=== PATIENT | female | born 2000 | race Hispanic/Latino ===

== ENCOUNTER 2021-05-07 23:00 | Emergency (ER) | payer MEDICAID ==
[~2021-05-07] VITALS: Ht 154.9 cm; Wt 61.2 kg
[2021-05-08] MEDS ORDERED: KETOROLAC 60 MG VIAL (30MG/ML) IM ONE (00:30)
[2021-05-08] MEDS ORDERED: ORPHENADRINE CITRATE 30 MG/ML ML IM ONE (00:30)
[2021-05-08 00:44] VITALS: BP 124/76
[2021-05-08] MEDS ORDERED: CYCL-309 PO (00:58)
[2021-05-08] MEDS ORDERED: MELO7.5T12 PO (00:58)
[2021-05-08] MEDS ORDERED: LIDOP TP (00:58)
[2021-05-08] MEDS ORDERED: CRUT1EAC MC (01:08)
== END 2021-05-08 01:13 | disposition home or self-care (01) ==
LOC: EDH 23:00
DX: M70.41 Prepatellar bursitis, right knee (principal); M54.50 Low back pain, unspecified; M62.838 Other muscle spasm; Z79.1 Long term (current) use of non-steroidal anti-inflammatories (NSAID); Y93.89 Activity, other specified
CPT/HCPCS: 96372 ×2; 99284; J1885; J2360

== ENCOUNTER 2021-05-21 06:10 | Emergency (ER) | payer MEDICAID ==
[~2021-05-21] VITALS: Ht 157.5 cm; Wt 66.7 kg
[~2021-05-21 06:10] MED LIST: CRUT1EAC MC; CYCL-309 PO; LIDOP TP; MELO7.5T12 PO
[2021-05-21] MEDS ORDERED: KETOROLAC 15MG/ML VIAL (15MG/ML) ONE (06:37)
[2021-05-21] MEDS ORDERED: HYDROCODONE/ACETAMINOPHEN 5/325 MG TAB ONE (06:37)
[2021-05-21] MEDS ORDERED: KETOROLAC 15MG/ML VIAL (15MG/ML) IM SCH (07:00)
[2021-05-21] MEDS ORDERED: HYDROCODONE/ACETAMINOPHEN 5/325 MG TAB PO SCH (07:00)
[2021-05-21 07:28] LABS: BASOPHILS % (AUTO) 0.7 % (0.0-5.0); EOSINOPHILS % (AUTO) 3.7 % (0.0-8.0); HEMATOCRIT 40.9 % (36-48); LYMPHOCYTES % (AUTO) 29.4 % (21.0-51.0); MEAN CORPUSCULAR HGB CONC 31.3 g/dL (32.0-36.0); MEAN CORPUSCULAR VOLUME 86.3 fL (79-99); MONOCYTES % (AUTO) 6.4 % (3.0-13.0); NEUTROPHILS % (AUTO) 59.5 % (40.0-77.0); PLATELET COUNT (AUTO) 318 K/uL (130-400); RED BLOOD CELL COUNT(AUTO) 4.74 MIL/uL (4.00-5.50); RED CELL DISTRIBUTION WIDTH 12.4 % (11.0-15.5); WHITE BLOOD COUNT (AUTO) 9.2 K/uL (4.8-10.8)
[2021-05-21] MEDS ORDERED: MORPHINE 4 MG SYG IVP SCH (07:30)
[2021-05-21] MEDS ORDERED: ONDANSETRON 4MG INJ IVP SCH (07:30)
[2021-05-21 07:39] LABS: POTASSIUM 3.7 mmol/L (3.5-5.1)
[2021-05-21 07:41] LABS: INR 0.98 (0.85-1.15); PROTHROMBIN TIME 10.7 SEC (9.6-11.6)
[2021-05-21 07:44] LABS: ALBUMIN 3.8 g/dL (3.5-5.0); BILIRUBIN,TOTAL 0.2 mg/dL (0.2-1.0); TOTAL PROTEIN, SERUM 7.8 g/dL (6.0-8.3)
[2021-05-21] MEDS: MORPHINE 4 MG SYG IV SCH ×2 (11:00→11:25)
[2021-05-21] MEDS ORDERED: GADOTERATE MEGLUMINE 10 MMOL/20 ML VIAL IV ONE (11:07)
[2021-05-21] MEDS ORDERED: MORPHINE 4 MG SYG IV SCH (12:00)
[2021-05-21 15:01] VITALS: BP 92/55
[2021-05-21] MEDS ORDERED: ACET1TAB25 PO (15:45)
[2021-05-21] MEDS ORDERED: HYDROCODONE/ACETAMINOPHEN 10/325 MG TAB ONE (15:52)
[2021-05-21] MEDS ORDERED: HYDROCODONE/ACETAMINOPHEN 10/325 MG TAB PO ONE (16:00)
== END 2021-05-21 16:15 | disposition home or self-care (01) ==
LOC: EDH 06:10
DX: C41.9 Malignant neoplasm of bone and articular cartilage, unspecified (principal); M25.561 Pain in right knee; G43.909 Migraine, unspecified, not intractable, without status migrainosus
CPT/HCPCS: 29505; 36415; 73564; 73700; 73720; 80053; 84703; 85025; 85610; 85651; 86140; 96372; 96374; 96375; 96376; 99285; A9575; J1885; J2270 ×3; J2405

== ENCOUNTER → 2021-06-04 | Outpatient (CLI) | payer MEDICAID ==
[~2021-06-04] MED LIST changes: +ACET1TAB25 PO
== END | disposition home or self-care (01) ==
LOC: RAH 08:16
PROVIDERS: ATTEND Orthopaedic Surgery
DX: C40.21 Malignant neoplasm of long bones of right lower limb (principal)
CPT/HCPCS: 71250

== ENCOUNTER → 2021-06-10 | Outpatient (CLI) | payer MEDICAID ==
[~2021-06-10] MED LIST changes: +GADOTERATE MEGLUMINE 10 MMOL/20 ML VIAL IV ONE
== END | disposition home or self-care (01) ==
LOC: RAH 09:22
PROVIDERS: ATTEND Orthopaedic Surgery
DX: D49.2 Neoplasm of unspecified behavior of bone, soft tissue, and skin (principal)
CPT/HCPCS: 73720; A9575

== ENCOUNTER → 2021-06-26 | Outpatient (CLI) | payer MEDICAID ==
[~2021-06-26] MED LIST changes: -GADOTERATE MEGLUMINE 10 MMOL/20 ML VIAL IV ONE
== END | disposition home or self-care (01) ==
LOC: RAH 13:05
PROVIDERS: ATTEND Orthopaedic Surgery
DX: C40.90 Malignant neoplasm of unspecified bones and articular cartilage of unspecified limb (principal)
CPT/HCPCS: 78306; A9503

== ENCOUNTER 2022-05-04 21:09 | Emergency (ER) | payer MEDICAID ==
[~2022-05-04] VITALS: Ht 154.9 cm; Wt 53.1 kg
[~2022-05-04 21:09] MED LIST changes: +ACET-2079 PO; -ACET1TAB25 PO
[2022-05-04] MEDS ORDERED: SOLU-MEDROL 125MG VIAL IVP ONE (22:30)
[2022-05-04] MEDS ORDERED: IPRATROPIUM/ALBUTEROL SULFATE 3 ML SOLUTION IH ONE (22:30)
[2022-05-04 22:34] LABS: BASOPHILS % (AUTO) 0.7 % (0.0-5.0); EOSINOPHILS % (AUTO) 15.9 % (0.0-8.0); HEMATOCRIT 42.5 % (36-48); LYMPHOCYTES % (AUTO) 19.1 % (21.0-51.0); MEAN CORPUSCULAR HEMOGLOBIN 28.6 pg (27.0-33.0); MEAN CORPUSCULAR HGB CONC 33.4 g/dL (32.0-36.0); MEAN CORPUSCULAR VOLUME 85.7 fL (79-99); NEUTROPHILS % (AUTO) 55.1 % (40.0-77.0); PLATELET COUNT (AUTO) 202 K/uL (130-400); RED BLOOD CELL COUNT(AUTO) 4.96 MIL/uL (4.00-5.50); RED CELL DISTRIBUTION WIDTH 14.6 % (11.0-15.5); WHITE BLOOD COUNT (AUTO) 5.5 K/uL (4.8-10.8)
[2022-05-04 22:44] LABS: CREATININE 0.8 mg/dL (0.5-1.5); POTASSIUM 3.8 mmol/L (3.5-5.1)
[2022-05-04 22:49] LABS: ALBUMIN 4.4 g/dL (3.5-5.0); TOTAL PROTEIN, SERUM 8.7 g/dL (6.0-8.3)
[2022-05-04] MEDS ORDERED: ALBUTEROL 0.083% 2.5 MG/3 ML INH IH ONE (23:00)
[2022-05-04 23:49] VITALS: BP 128/76
== END 2022-05-05 | disposition home or self-care (01) ==
LOC: EDH 21:09
DX: B34.9 Viral infection, unspecified (principal); Z79.52 Long term (current) use of systemic steroids; Z79.899 Other long term (current) drug therapy; Z20.822 Contact with and (suspected) exposure to COVID-19
CPT/HCPCS: 99284; 96374; 71045; 87635; 80053; 85025; 87880; 87804 ×2; 36415; 94640 ×2; C9803; J2930

== ENCOUNTER 2022-12-07 17:04 | Emergency (ER) | payer MEDICAID ==
[~2022-12-07] VITALS: Ht 154.9 cm; Wt 59.0 kg
[2022-12-07] MEDS ORDERED: MORPHINE 4 MG SYG IM ONE (18:00)
[2022-12-07] MEDS ORDERED: ONDANSETRON ODT 4MG TAB SL ONE (18:00)
[2022-12-07] MEDS ORDERED: MORPHINE 2 MG SYG ONE (18:00)
[2022-12-07 18:24] VITALS: BP 124/77
[2022-12-07] MEDS ORDERED: PRED50TA2 PO (18:27)
== END 2022-12-07 18:59 | disposition home or self-care (01) ==
LOC: EDH 17:04
DX: M54.12 Radiculopathy, cervical region (principal); G43.909 Migraine, unspecified, not intractable, without status migrainosus; Z79.899 Other long term (current) drug therapy; Z98.890 Other specified postprocedural states
CPT/HCPCS: 99285; 72125; 96372; 93005; J2270

== ENCOUNTER 2022-12-10 03:43 | Emergency (ER) | payer MEDICAID ==
[~2022-12-10] VITALS: Ht 154.9 cm; Wt 60.8 kg
[~2022-12-10 03:43] MED LIST changes: +PRED50TA2 PO
[2022-12-10 06:10] VITALS: BP 145/74
== END 2022-12-10 05:57 | disposition home or self-care (01) ==
LOC: EDH 03:43
DX: O26.893 Other specified pregnancy related conditions, third trimester (principal); M54.2 Cervicalgia; M25.512 Pain in left shoulder; Z3A.34 34 weeks gestation of pregnancy; Z79.1 Long term (current) use of non-steroidal anti-inflammatories (NSAID); Z79.52 Long term (current) use of systemic steroids

== ENCOUNTER 2022-12-17 08:54 | Observation (INO) | payer MEDICAID ==
[~2022-12-17] VITALS: Ht 154.9 cm; Wt 59.0 kg
[2022-12-17] MEDS ORDERED: LACTATED RINGERS 1000ML 1,000 ML IV ONE (12:00)
[2022-12-17 12:54] LABS: BASOPHILS % (AUTO) 0.2 % (0.0-5.0); HEMATOCRIT 31.2 % (36-48); LYMPHOCYTES % (AUTO) 11.3 % (21.0-51.0); MEAN CORPUSCULAR HEMOGLOBIN 28.3 pg (27.0-33.0); MEAN CORPUSCULAR HGB CONC 32.7 g/dL (32.0-36.0); MEAN CORPUSCULAR VOLUME 86.4 fL (79-99); MONOCYTES % (AUTO) 2.2 % (3.0-13.0); NEUTROPHILS % (AUTO) 85.5 % (40.0-77.0); PLATELET COUNT (AUTO) 204 K/uL (130-400); RED BLOOD CELL COUNT(AUTO) 3.61 MIL/uL (4.00-5.50); RED CELL DISTRIBUTION WIDTH 13.2 % (11.0-15.5); WHITE BLOOD COUNT (AUTO) 11.6 K/uL (4.8-10.8)
[2022-12-17 12:58] LABS: CREATININE 0.6 mg/dL (0.5-1.5); POTASSIUM 3.7 mmol/L (3.5-5.1)
[2022-12-17] MEDS ORDERED: ACETAMINOPHEN 500 MG TABLET PO ONE (13:00)
[2022-12-17 13:05] VITALS: BP 111/63; PULSE 89; RESP 18
== END 2022-12-17 10:45 | disposition home or self-care (01) ==
LOC: EDH 08:54 → LDH 08:55
PROVIDERS: ADMIT Obstetrics & Gynecology; ATTEND Obstetrics & Gynecology
DX: O99.891 Other specified diseases and conditions complicating pregnancy (principal); M19.012 Primary osteoarthritis, left shoulder; M19.011 Primary osteoarthritis, right shoulder; Z3A.35 35 weeks gestation of pregnancy; Z85.830 Personal history of malignant neoplasm of bone
CPT/HCPCS: 99284; 96360; 76805; 82550; 80048; 85025; 36415; G0378

== ENCOUNTER 2022-12-26 23:50 | Emergency (ER) | payer MEDICAID ==
[~2022-12-26] VITALS: Ht 154.9 cm; Wt 59.0 kg
[2022-12-27 01:08] LABS: CARBON DIOXIDE 25 mmol/L (21-32); CHLORIDE 106 mmol/L (101-111); CREATININE 0.5 mg/dL (0.5-1.5); GLOMERULAR FILTR. RATE CALC 134 mL/min (>90); GLUCOSE,RANDOM 85 mg/dL (70-105); SODIUM SERUM 142 mmol/L (136-145); UREA NITROGEN, BLOOD 7 mg/dL (7-18)
[2022-12-27 01:09] LABS: BASOPHILS % (AUTO) 0.3 % (0.0-5.0); EOSINOPHILS % (AUTO) 1.9 % (0.0-8.0); MEAN CORPUSCULAR HEMOGLOBIN 27.3 pg (27.0-33.0); MEAN CORPUSCULAR HGB CONC 31.5 g/dL (32.0-36.0); MEAN CORPUSCULAR VOLUME 86.8 fL (79-99); MONOCYTES % (AUTO) 4.4 % (3.0-13.0); NEUTROPHILS % (AUTO) 79.7 % (40.0-77.0); PLATELET COUNT (AUTO) 219 K/uL (130-400); RED BLOOD CELL COUNT(AUTO) 3.11 MIL/uL (4.00-5.50); RED CELL DISTRIBUTION WIDTH 13.8 % (11.0-15.5); WHITE BLOOD COUNT (AUTO) 11.3 K/uL (4.8-10.8)
[2022-12-27 01:11] LABS: ALANINE AMINOTRANSFERASE 10 U/L (12-78); ALBUMIN 2.2 g/dL (3.5-5.0); ASPARTATE AMINOTRANSFERASE 22 U/L (10-37); CREATINE KINASE, TOTAL 266 U/L (21-232); TOTAL PROTEIN, SERUM 5.9 g/dL (6.0-8.3)
[2022-12-27 01:13] LABS: ACETAMINOPHEN < 1 mcg/mL (10-30); SALICYLATE < 2.8 mg/dL (2.8-20.0)
[2022-12-27 01:55] LABS: APPEARANCE,URINE CLEAR (CLEAR); BILIRUBIN,URINE NEGATIVE (NEGATIVE); GLUCOSE, URINE (UA) NEGATIVE (NEGATIVE); KETONES,URINE NEGATIVE (NEGATIVE); LEUKOCYTE ESTERASE ,URINE NEGATIVE Leu/uL (NEGATIVE); NITRATE,URINE NEGATIVE (NEGATIVE); OCCULT BLOOD,URINE LARGE (NEGATIVE); PH,URINE 7.5 (5.0-8.0); PROTEIN,URINE NEGATIVE (NEGATIVE); UROBILINOGEN,URINE 0.2 mg/dL (0.2-1.0)
[2022-12-27 01:58] LABS: COLOR,URINE Light-Yellow (YELLOW)
[2022-12-27 02:02] LABS: MUCUS,URINE RARE LPF (None Seen); SQUAMOUS EPITHELIAL CELL,UR RARE /HPF (0-2)
[2022-12-27 02:05] LABS: AMPHET/METH SCREEN,URINE NEGATIVE (NEGATIVE); BARBITURATE SCREEN, URINE NEGATIVE (NEGATIVE); BENZODIAZEPINES SCREEN,URINE POSITIVE (NEGATIVE); CANNABINOID SCREEN,URINE POSITIVE (NEGATIVE); COCAINE SCREEN,URINE NEGATIVE (NEGATIVE); OPIATE SCREEN,URINE POSITIVE (NEGATIVE); PHENCYCLIDINE SCREEN,URINE NEGATIVE (NEGATIVE)
[2022-12-27] MEDS ORDERED: MAGNESIUM 2GM PREMIX 50ML 50 ML IV SCH (03:00)
[2022-12-27] MEDS ORDERED: IBUPROFEN 800 MG TAB PO ONE (03:30)
[2022-12-27] MEDS ORDERED: CYCLOBENZAPRINE HCL 10 MG TABLET PO ONE (03:30)
[2022-12-27 03:46] VITALS: BP 122/74; PULSE 74; RESP 16; O2SAT 97
== END 2022-12-27 03:47 | disposition home or self-care (01) ==
LOC: EDH 23:50
DX: O90.9 Complication of the puerperium, unspecified (principal); E83.42 Hypomagnesemia; D64.9 Anemia, unspecified; R53.1 Weakness; R77.0 Abnormality of albumin; G89.29 Other chronic pain; Z76.5 Malingerer [conscious simulation]; Z79.1 Long term (current) use of non-steroidal anti-inflammatories (NSAID); Z79.52 Long term (current) use of systemic steroids; Z89.611 Acquired absence of right leg above knee; Z92.21 Personal history of antineoplastic chemotherapy
CPT/HCPCS: 99285; 82550; 83735; 84100; 84484; 80053; 80305; 85025; 87040 ×2; 87088; 83605; 81001; 36415; 96365; 70450; 96366; 93005; J3475; G0481